=== PATIENT | female | born 1930 | race Caucasian/White ===

== ENCOUNTER 2018-09-18 13:08 | Inpatient (IN) | payer OTHER ==
[~2018-09-18] VITALS: Ht 146 cm; Wt 65.8 kg
[2018-09-18 13:24] VITALS: BP 103/54
[2018-09-18 14:15] LABS: ABSOLUTE NEUTROPHILS 4.9 thou/uL (1.4-8.2); BASOPHILS 0.8 % (0.0-2.0); EOSINOPHILS 1.4 % (0.0-3.0); HEMATOCRIT 39.5 % (37.0-47.0); HEMOGLOBIN 13.2 gm/dL (12.0-15.0); LYMPHOCYTES 28.2 % (24.0-44.0); MCH 32.3 pg (26.0-34.0); MCHC 33.5 g/dL (28.0-37.0); MCV 96.4 fL (80.0-100.0); MONOCYTES 8.8 % (1.0-8.0); PLATELET COUNT 219 thou/uL (150-400); POLYS 60.8 % (36.0-66.0); RBC 4.09 mil/uL (4.20-5.00); RDW 13.8 % (10.5-14.5); WBC 8.1 thou/uL (4.0-11.0)
[2018-09-18 14:23] LABS: ANION GAP 9 mmol/L (7-16); BUN 21 mg/dL (7-18); CALCIUM 8.9 mg/dL (8.5-10.1); CHLORIDE 110 mmol/L (98-107); CO2 25 mmol/L (21-32); CREATININE 0.8 mg/dL (0.6-1.0); GLUCOSE 112 mg/dL (74-106); SODIUM 144 mmol/L (136-145)
[2018-09-18 14:34] LABS: ALBUMIN 3.2 g/dL (3.4-5.0); MAGNESIUM 1.8 mg/dL (1.8-2.4); SALICYLATE < 2.8 mg/dL (2.8-20.0); SGOT 31 U/L (15-37); SGPT 21 U/L (30-65); TOTAL BILIRUBIN 0.6 mg/dL (<0.1-1.0); TOTAL PROTEIN 6.2 g/dL (6.4-8.2); TROPONIN-I <0.06 ng/mL (<0.06)
[2018-09-18 15:25] LABS: URINE BILIRUBIN NEGATIVE (Negative); URINE BLOOD TRACE (Negative); URINE CLARITY CLEAR; URINE COLOR YELLOW; URINE GLUCOSE-RANDOM* NEGATIVE (Negative); URINE KETONES NEGATIVE (Negative); URINE PROTEIN (DIPSTICK) NEGATIVE (Negative); URINE UROBILINOGEN 0.2 E.U./dl (0.2-1.0)
[2018-09-18 15:26] LABS: URINE LEUKOCYTES-REFLEX 3+ (Negative); URINE NITRITE-REFLEX POSITIVE (Negative)
[2018-09-18] MEDS ORDERED: ASPIR 8181 M1 PO (15:26)
[2018-09-18] MEDS ORDERED: MIRALAX17 GM PO (15:27)
[2018-09-18] MEDS ORDERED: B-12500 MC1 PO (15:27)
[2018-09-18] MEDS ORDERED: BIOFREEZE118 ML TOP (15:27)
[2018-09-18] MEDS ORDERED: LAMICTAL XR100 MG PO (15:29)
[2018-09-18] MEDS ORDERED: CLARITIN10 MG PO (15:29)
[2018-09-18] MEDS ORDERED: HYDROCORTISONE30 G9 TOP (15:29)
[2018-09-18] MEDS ORDERED: LISINOPRIL10 MG PO (15:29)
[2018-09-18] MEDS ORDERED: UNICOMPLEX M TA1 TA1 PO (15:30)
[2018-09-18] MEDS ORDERED: PROAIR HFA8.5 GM INH (15:31)
[2018-09-18] MEDS ORDERED: SYNTHROID100 MC1 PO (15:31)
[2018-09-18] MEDS ORDERED: VITAMIN D1000 UNI1 PO (15:32)
[2018-09-18] MEDS ORDERED: TYLENOL325 MG PO (15:32)
[2018-09-18 15:34] LABS: AMP/METHAMP Negative (Negative); BARBITURATES Negative (Negative); BENZODIAZEPINES Negative (Negative); COCAINE Negative (Negative); METHADONE Negative (Negative); OPIATES Negative (Negative); PCP Negative (Negative)
[2018-09-18 15:41] LABS: BACTERIA-REFLEX >30 Many /HPF (None Seen); CASTS None Seen /LPF (None Seen); CRYSTALS None Seen /LPF (None Seen); SQUAMOUS 0-3 Few /LPF (0-3); URINE RBC 0-2 Rare /HPF (0-2)
[2018-09-18 15:58] VITALS: BP 110/58
[2018-09-18 17:48] VITALS: BP 145/75
--- NOTE | 2018-09-18 17:55 | NUR ---
WHITE 87 YEAR OLD WHITE FEMALE ADMITTED FROM ER. PT. ARRIVED ON A STRETCHER AT 1630 TODAY. PT. ACCOMPANIED BY ONE HOSPITAL STAFF AND TWO SONS. QUESTIONS ANSWERED MOSTLY BY THE SONS. REPORT STATED THIS PATIENT WAS DELUSIONAL, ANXIETY, OUTBURSTS. SONS DENIED THIS HAS OCCURRED. PT. HAS A HISTORY OF DIVERTICULITIS WITH BOWEL RESECTION, RECURRENT UTI'S FALL IN 2014 WITH BRAIN BLEED AND NOW WITH INCREASED WEAKNESS ON LEFT HEMISPHERE OF BODY, AND PARTIAL HYSTERECTOMY, GALL BLADDER REMOVED ABOUT 30 YEARS AGO. SHE SITS IN A W/C AND NEEDS ASSISTANCE OF TWO STAFF TO GET HER UP INTO W/C OR INTO BED. SHE DENIES DRUG OR ETOH HISTORY. SKIN IS INTACT AND NO PROBLEMS NOTED.
[2018-09-18 19:25] LABS: TSH 0.641 uIU/mL (0.358-3.740)
[2018-09-18 21:08] VITALS: BP 107/63
--- NOTE | 2018-09-19 02:39 | NUR ---
Pleasant and cooperative upon inital assessment at approx 1930-observed initally in bed in room- reports having to use bathroom and provided with roller walker and bedside commode-requires max assist x2 for transfer to commode d/t left hemiperisis-had been incont large amount urine prior to transfer to commode-urine is noted to concentrated with strong odor-bedding changed and repositioned for comfort-appreciative of cares provided thanking staff profously-takes sips of water with encouragement-denies c/o pain and discomfort-full range affect using humor and telling jokes and stories to staff. was incontinent of urine short time later at approx 2230 and again assisted to commode-does report some all over pain rated a 6 on 1-10 scale-requested and received tylenol 625mg po prn for reported-does appear to be resting quietly with eyes close upon reassement in approx 30 minutes-will continue to monitor
[2018-09-19 07:35] VITALS: BP 98/57
--- NOTE | 2018-09-19 09:57 | NUR ---
0730: Report rec. from noc shift, care assumed. Awake, oriented to name and place. To DR via w/c, feeds self with set-up assist. Cooperative and calm with staff, asks questions regarding procedures and schedules of facility, explanation given, appetite good, takes medications w/o difficulty. [id number]: Son called unit to inquire about visiting pt, update given on pts status, son to be here for visit today.
--- NOTE | 2018-09-19 18:42 | EKG ---
[place] [address] [facility] [facility] [place] [address] ELECTROCARDIOGRAM REPORT Name: CALRINMELITA Room #: 52-B ADM IN M.R.#: [id number] ������������������ Admission: 09/18/18 ������������������ Attend Phys: Rocky Pathak DO Discharge: ������������������ Date of : [birth year] Report #: [id number] ����������������������������������������������������������������� [id number] THIS REPORT FOR: //name// [facility] ED Test Date: 2018-09-18 Test Time: 14:25:15 Pat Name: MELITA CARLIN Department: Room: 52 Gender: F Factory Supervisor: BRIE : 1930 Requested By: Fabian Cuenca Order Number: [id number] MD: Umer Salinas Measurements Intervals [place] Rate: 104 P: DE: QRS: -6 QRSD: 91 T: 2 QT: 375 QTc: 494 Interpretive Statements Atrial fibrillation Low voltage throughout Nonspecific ST-T wave changes No previous ECG available for comparison Electronically Signed On 09-19-2018 18:42:03 CDT by Umer Salinas [email or web address] ��������������������������������������������� <ELECTRONICALLY SIGNED> ���������������������������������������� By: Umer Salinas MD ��������������������������������������������� 09/19/18 1842 1425 1425 Umer Salinas MD /ANTWON
[2018-09-19 19:35] VITALS: BP 118/55
--- NOTE | 2018-09-19 20:42 | NUR ---
Stool sample collected, pt requested to [facility] bed at 0845. 2 person transfer, l sided weakness. Requested to use bedpan and had bowel movment but was incontinent of urine. Pt asked what the plan was for the evening upon introductions.
--- NOTE | 2018-09-20 02:27 | NUR ---
Pt refused labs attempt to draw syphillis at 0230. She stated she did not want to have any more procedures and she had blood drawn 2 days ago.
--- NOTE | 2018-09-20 04:06 | NUR ---
Pt slept throughout the night except when awakened for rounds or by lab.
--- NOTE | 2018-09-20 06:24 | NUR ---
Pt refused reattempt at blood draw this am. Will have day shift share with dr during rounding.
--- NOTE | 2018-09-20 11:07 | NUR ---
ASSUMED CARE OF PT AT 0700. PT ATE BREAKFAST IN DAYROOM AT TABLE W/PEERS. PT UP IN WHEELCHAIR W/ASSIST, NON-WT. BEARING L SIDE - L SIDE FLACCID D/T PAST HX OF STROKE. STAFF ATTEMPTED TO CHANGE PT SWEATER AFTER BREAKFAST SWEATER SOILED. PT YELLING "STOP IT DON'T HIT ME, DON'T BRUISE ME, DON'T LOCK ME IN A ROOM." STAFF ATTEMPTED TO REDIRECT/CALM PT. PT DID NOT PHYSICALLY ATTEMPT TO HARM STAFF, BUT CONTINUED YELLING AT STAFF x2 UNTIL HER SWEATER WAS CHANGED. PT WANTED TO HOLD DIRTY SWEATER TO GIVE TO HER FAMILY TO LAUNDER. PT ANTICIPATED FAMILY TO VISIT. PT CONFUSED AND DISORIENTED. TOOK AM MEDS W/O DIFFICULTY. NO ACUTE DISTRESS NOTED. WILL CONTINUE TO MONITOR THROUGHOUT SHIFT.
[2018-09-20 11:26] VITALS: BP 96/61
--- NOTE | 2018-09-20 15:26 | NUR ---
UP IN WHEELCHAIR IN DAYROOM, BEHAVIOR SUSPICIOUS/PARANOID. PT STATING SHE IS TALKING TO ANYONE WITHOUT HER EXTERIOR WORK HELPER OR FAMILY MEMBER PRESENT. PT STATING SHE IS NOT GOING TO HAVE LABS/EKG DONE. PT STATING SHE DOESN'T TRUST ANYONE WHO WORKS HERE. PT SON CALLED TO UPDATE ON HOW PT WAS DOING AND TO INFORM THAT HE AND PT'S WILL BE COMING FOR VISIT. PT WAS INFORMED FAMILY WAS PLANNING TO COME TO VISIT. "GOOD THEY TAKE ME OUT OF HERE." PT VOICING NO COMPLAINTS & IN NO ACUTE DISTRESS. CONTINUE TO MONITOR THROUGHOUT SHIFT.
--- NOTE | 2018-09-20 15:29 | NUR ---
LAB CALLED & SAID THEY WERE CANCELLING LAB ORDER PT IS REFUSING TO HAVE LAB DRAWN.
--- NOTE | 2018-09-20 16:55 | NUR ---
PT INCONTINENT YELLOW URINE -PERICARE COMPLETED W/ASSIST OF 2 -PT NON-WT BEARING. PT SITTING IN DAYROOM VISITING W/ AND SON. REMAINS DISORIENTED AND CONFUSED - PLEASANT AT THIS TIME.
--- NOTE | 2018-09-20 18:46 | NUR ---
PT LYING QUIETLY IN BED AT PRESENT PER HER REQUEST. INCONTINENT AND PERICARE COMPLETED. PT TEARFUL SAYING "CAN YOU JUST TELL ME WHY I AM HERE AND WHO IS GOING TO ." REASSURED PT SHE IS SAFE AND REORIENTED HER TO SURROUNDINGS. CONITNUE TO MONITOR.
--- NOTE | 2018-09-20 21:31 | NUR ---
Pt resting in bed upon arrival to shift. Pt requested prn tylenol x 1. Smiling calm compliant with meds.
--- NOTE | 2018-09-20 22:45 | NUR ---
Pt yelling our for assistance reported l groin tingling. Pt was repositioned and changed. Pt was turned on her L side and holding herself up and was screeching dont touch me you are hurting me, but no one was touching her.
[2018-09-21 08:00] VITALS: BP 86/43
[2018-09-21 09:00] VITALS: BP 86/43
--- NOTE | 2018-09-21 09:00 | NUR ---
PT IN GOOD MOOD TODAY. ABLE TO FEED SELF. UNABLE TO USE LEFT HAND DUE TO STROKE IN 2015. ABLE TO STAND ON RT LEG TO HELP WITH TRANSFERS. WEARS BRIEF FOR INCON. STATED SHE WANTED TO HAVE A GOOD BM TODAY AND WAS WONDERING IF LEFT SIDE OF COLON WAS PARALYZED. LAST BM ON THE .
--- NOTE | 2018-09-21 11:30 | NUR ---
GETTING ECHO. PT STATED TO RIBBON CUTTER SHE DIDN'T TRUST HER, STATED SHE HAS LEARNED NOT TO TRUST ANYONE EVEN HERSELF. SHE ALLOWED [employer] TO PERFORM TEST.
--- NOTE | 2018-09-21 12:37 | 2DMMODE ---
[facility] [address] [place] [address] 2 D/M-MODE ECHOCARDIOGRAM Name: CARLINMELITA Room #: 522B-B ADM IN .R.#: [id number] ������������� Admission: 09/18/18 ������������� Attend Phys: Rocky Pathak Discharge: ��� ������������� ��� Date of : [birth year] Date of Service: 09/21/18 1237 �� Report #: [id number] �������� ��������������������������������������������[id number] THIS REPORT FOR: //name// APPROVED REPORT Study performed: 09/21/2018 11:04:29 EXAM: Comprehensive 2D, Doppler, and color-flow Echocardiogram Patient Location: Bedside Room #: 522 Status: routine BSA: 1.69 HR: 85 bpm BP: 96/61 mmHg Rhythm: Atrial Fibrillation Other Information Study Quality: Adequate/Technically Difficult Technically limited study due to uncooperative patient/ dementia. Indications Atrial Fibrillation 2D Dimensions RVDd: 40.50 mm IVSd: 13.58 (7-11mm) LVOT Diam: 18.34 (18-24mm) LVDd: 41.62 mm PWd: 13.20 (7-11mm) Ascending Ao: 32.81 (22-36mm) LVDs: 22.12 (25-40mm) Aortic Root: 27.28 mm IVC: 14.00 mm Volumes Left Atrial Volume (Systole) Single Plane 4CH: 73.75 mL Single Plane 2CH: 95.60 mL LA ESV Index: 57.00 mL/m2 Aortic Valve LVOT Max P.64 mmHg LVOT Max V: 0.64 m/s TAN Vmax: 1.44 cm2 Mitral Valve MV Decel. Time: 134.93 ms MV E Max Willie.: 1.26 m/s [facility] [address] [place] [address] 2 D/M-MODE ECHOCARDIOGRAM Name: RAEGANORIANAMALENA [place] Room #: 52-B [facility] IN [facility]#: [id number] ������������� Admission: 09/18/18 ������������� Attend Phys: Rocky Pathak Discharge: ��� ������������� ��� Date of : [birth year] Date of Service: 09/21/18 1237 �� Report #: [id number] �������� ��������������������������������������������[id number] IVRT: 64.59 ms Pulmonary Valve PV Peak Willie.: 0.80 m/s PV Peak Gr.: 2.59 mmHg Tricuspid Valve TR Peak Willie.: 2.83 m/s RAP Estimate: 5.00 mmHg TR Peak Gr.: 31.96 mmHg PA Pressure: 37.00 mmHg Left Ventricle The left ventricle is normal size. Mild to moderate concentric left ventricular hypertrophy. The left ventricular systolic function is normal. The left ventricular ejection fraction is within the normal range. LVEF is 60-65%. This study is not technically sufficient to allow evaluation of the LV diastolic function due to atrial fibrillation. Right Ventricle Right ventricle is mildly dilated. The right ventricular systolic function is normal. Atria Left atrium is severely dilated. Right atrium is mildly dilated. Aortic Valve Aortic valve is mildly calcified. Mild aortic regurgitation. There is no aortic valvular stenosis. Mitral Valve Moderate mitral annular calcification. Severe mitral regurgitation with eccentric yet. No evidence of mitral valve stenosis. Tricuspid Valve The tricuspid valve is normal in structure. Severe tricuspid regurgitation. PAP is estimated at 37 mmHg. Pulmonic Valve Pulmonic valve is not well visualized. Trace pulmonic regurgitation. Great Vessels The aortic root is normal in size. IVC is normal in size and collapses >50% with inspiration. [facility] [place] [address] 2 D/M-MODE ECHOCARDIOGRAM Name: MELITA CARLIN Room #: 522B-B [facility] IN M.R.#: [id number] ������������� Admission: 09/18/18 ������������� Attend Phys: Rocky Pathak Discharge: ��� ������������� ��� Date of : [birth year] Date of Service: 09/21/18 1237 �� Report #: [id number] �������� ��������������������������������������������[id number] Pericardium There is no pericardial effusion. <Conclusion> The left ventricle is normal size. LVEF is 60-65%. Right ventricle is mildly dilated. Left atrium is severely dilated. Right atrium is mildly dilated. Aortic valve is mildly calcified. Mild aortic regurgitation. Moderate mitral annular calcification. Severe mitral regurgitation with eccentric yet. The tricuspid valve is normal in structure. Severe tricuspid regurgitation. PAP is estimated at 37 mmHg. Pulmonic valve is not well visualized. Trace pulmonic regurgitation. There is no pericardial effusion. ��������������������������������������������� <ELECTRONICALLY SIGNED> ���������������������������������������� By: Umer Salinas MD ��������������������������������������������� 09/21/18 1237 1237 1237 Umer Salinas MD /INF
[2018-09-21 13:00] VITALS: BP 95/47
[2018-09-21 14:05] VITALS: BP 86/43
--- NOTE | 2018-09-21 15:13 | NUR ---
PT HAS BEEN ATTENDING GROUPS TODAY. PT WAS TEARFUL EARLIER TODAY TALKING WITH ANOTHER PATIENT.
--- NOTE | 2018-09-21 18:00 | NUR ---
PLACED PT TO BED AFTER DINNER. FAMILY HER FOR DINNER AND HAD TO LEAVE DUE TO PT STATING FOR THEM TO LEAVE. PT PUT BACK TO BED AND CHANGED BRIEF. PT WANTED TO USE BED DANIEL TO HAVE BM, NO BM RESULTS JUST PASSING SOME GAS. PT DID VOID LARGE AMOUNT OF URINE. PT IS A 1-2 MAN TRANSFER. PT ABLE TO BEAR WEIGHT TO RT LEG AND PIVOT FROM BED TO CHAIR.
[2018-09-21 20:05] VITALS: BP 100/65
--- NOTE | 2018-09-22 02:31 | NUR ---
IN BED RESTING QUIETLY UPON INITAL ASSESSMENT THIS PM- RECOGNIZES THIS GAS STATION SERVICE ATTENDANT FROM PREVIOUOS SHIFT STATING "I REMEMBER TELLING YOU MY THREE BEARS JOKE"COOPERATIVE WITH STAFF-ASSSITED TO BEDSIDE COMMODE WITH ASSSIT X 2 AND DID HAVE LARGE SOFT BM-REPORTING LEFT SIDED LOW ABDOMINAL PAIN BUT STATES THAT GOT BETTER AFTER URINATING AND HAVING A BM-TYLENOL 650MG PO PRN FOR LEFT LOWER ABD PAIN AT APPROX 2145-ASLEEP WITHIN 30 MIN OF ADMINISTRATION.
[2018-09-22 09:51] VITALS: BP 104/61
--- NOTE | 2018-09-22 16:29 | EKG ---
[place] [address] [facility] [place] [address] ELECTROCARDIOGRAM REPORT Name: CARLINMELITA Room #: 522B-B ADM IN M.R.#: [id number] ������������������ Admission: 09/18/18 ������������������ Attend Phys: Rocky Pathak DO Discharge: ������������������ Date of : [birth year] Report #: [id number] ����������������������������������������������������������������� [id number] THIS REPORT FOR: //name// [facility] Test Date: 2018-09-22 Test Time: 13:47:05 Pat Name: MELITA CARLIN Department: Room: 522B B Gender: F Paralegal Legal Secretary: Leonides WHITTINGTON : 1930 Requested By: Yumiko Goodman Order Number: [id number] MD: Alfie Cardenas Measurements Intervals [place] Rate: 76 P: [place]: QRS: 5 QRSD: 92 T: 18 QT: 414 QTc: 466 Interpretive Statements Atrial fibrillation Low voltage, extremity leads Compared to ECG 09/18/2018 14:25:15 ST (T wave) deviation no longer present Electronically Signed On 09-22-2018 16:28:50 CDT by Alfie Cardenas [email or web address] ��������������������������������������������� <ELECTRONICALLY SIGNED> ���������������������������������������� By: Alfie Cardenas MD ��������������������������������������������� 09/22/18 7798 1347 1347 Alfie Cardenas MD /EPI
--- NOTE | 2018-09-22 17:39 | NUR ---
ATTENDED GROUPS AND ATE MEALS IN DINNIING ROOM WITH PLEASANT DEMENOR. GOOD APPETITE AND INSISTS ON FEEDING SELF. NO C/O PAIN. RESP EVEN AND UNLABORED ON ROOM AIR. CONTINUES TO BE SOMEWHAT PARANOID AND WORRRIED ABOUT PEOPLE TREATING HER BAD.
[2018-09-22 20:31] VITALS: BP 81/47
[2018-09-23 07:40] VITALS: BP 87/51
[2018-09-23 08:00] VITALS: BP 87/51
--- NOTE | 2018-09-23 08:00 | NUR ---
PT ASSISTED TO W/C X1 STAFF. PT ABLE TO HELP WITH PIVOTING. PT DRY WHEN GETTING UP TO W/C. PT STATED SHE DOES HAVE SOME PAIN TO LEFT LOWER QUADRANT WITH BED POSTITION CHANGES.
--- NOTE | 2018-09-23 10:30 | NUR ---
PT WAS GOING TO BE TAKEN INTO SHOWER ROOM. PT STATED SHE DIDN'T WANT TO BE LOCKED IN THERE. PT STARTED YELLING AND PUTTING FOOT DOWN NOT WANTING TO GET INTO ROOM. PT THEN TAKEN TO ROOM AND PLACED INTO BED FOR SPONGE BATH AND PUTTING ON CLEAN CLOTHES.
[2018-09-23 19:20] VITALS: BP 101/48
--- NOTE | 2018-09-23 20:43 | NUR ---
Pt declined hs snack, pt requested prn tylenol prior to sleep. Pt was in bed upon arrival to shift. Pt is sleeping with pillow over her head.
--- NOTE | 2018-09-24 00:01 | NUR ---
Pt remaining asleep after adl cares. No verbalizations regarding staff harming her during adl care.
--- NOTE | 2018-09-24 06:21 | NUR ---
Obtained UA through straight cath this am.
[2018-09-24 07:09] LABS: URINE BILIRUBIN NEGATIVE (Negative); URINE BLOOD NEGATIVE (Negative); URINE CLARITY CLEAR; URINE COLOR YELLOW; URINE GLUCOSE-RANDOM* NEGATIVE (Negative); URINE KETONES NEGATIVE (Negative); URINE LEUKOCYTES-REFLEX NEGATIVE (Negative); URINE NITRITE-REFLEX NEGATIVE (Negative); URINE PROTEIN (DIPSTICK) NEGATIVE (Negative); URINE SPECIFIC GRAVITY <= 1.005 (1.005-1.035); URINE UROBILINOGEN 0.2 E.U./dl (0.2-1.0)
--- NOTE | 2018-09-24 10:39 | NUR ---
ASSUMED PATIENT CARE AT 0700. PATIENT IN BED AT THAT TIME, ASSISTED UP FOR BREAKFAST PER HYBRID DERIVATIVES TRADER. CONFUSED MOOD, FLAT AFFECT, NO BEHAVIORS TO DATE THIS SHIFT. COMPLIANT WITH MEDICATIONS. CONTINUE TO MONITOR.
[2018-09-24 20:19] VITALS: BP 132/75
--- NOTE | 2018-09-25 01:25 | NUR ---
PT IN BED AT [facility] OF SHIFT. ABLE TO TAKE MEDS AND SWALLOW W/O PROBLEM. QUIET AND COOPERATIVE THIS PM. SLEPT INTERMITTANTLY THROUGH THE NIGHT TO THIS POINT.
[2018-09-25 07:15] VITALS: BP 83/48
[2018-09-25 07:30] VITALS: BP 83/48
[2018-09-25 09:00] VITALS: BP 83/48
--- NOTE | 2018-09-25 09:00 | NUR ---
PT ASSISTED TO W/C PER X2 STAFF. PT COOROPERATIVE WITH STAFF, NO YELLING OR FIGHTING. PT ABLE TO FEED SELF WITH RT HAND. LEFT HAND IS ON SPECIAL ARM HARRIS ON W/C. PT HAS DRY BRIEF ON AFTER INCON. CHANGE. PT STATED SHE DOES GET A STABBING, JOLT PAIN TO LLQ AT TIMES. REFUSES ANYTHING FOR PAIN NOW.
--- NOTE | 2018-09-25 14:16 | NUR ---
Recreational Therapy Weekly Progress Note Date of Admission: 09/18/18 Date of Activity Therapy Assessment: 09/21/18 Activity Goal: Patient will participate in 1 recreational therapy group per day until discharge. Initial Goal: Increase socialization and development of social skills to create trusting relationships within the milieu. Weekly progress towards goal: Achieving current goals Group participation level: Full Behaviors observed: Pt engaged in groups. Insightful to topics. No behaviors observed. Plan: No change towards goal
--- NOTE | 2018-09-25 15:00 | NUR ---
PT YELLING AND WANTING STAFF TO CALL POLICE DUE TO HER BEING ATTACKED. PT SITING IN GROUP. PT COMING OUT OF GROUP. PT YELLING HELP, WHEELING AROUND TO TRYING TO SHAKE DOOR OPEN.
--- NOTE | 2018-09-25 15:32 | NUR ---
PT PICKED UP WATER OFF TABLE AND TOSSED WATER TOWARDS RT SHOULDER AND GOT THIS NURSE WET THAT WAS PUSHING HER IN W/C.
--- NOTE | 2018-09-25 15:51 | NUR ---
PT NOT YELLING NOW, TALKING TO SELF IN W/C. CRYING. NURSE AND AID GOING TO CHANGE HER. SHE IS YELLING DON'T MOVE ME.
--- NOTE | 2018-09-25 17:00 | NUR ---
PT KICKING AT GARAGE DOOR, PT STATED SHE WANTED TO GET TO HER SON. STATED HER SON WAS NOT HERE, PT STOPPED KICKING AT DOOR WHEN PULLED AWAY.
--- NOTE | 2018-09-25 17:55 | NUR ---
ADM SERAQUEL 50MG PO FOR ANXIETY. PT HAD DINNER ARGUING WITH OTHER PATIENTS.
[2018-09-25 20:34] VITALS: BP 98/40
--- NOTE | 2018-09-26 03:20 | NUR ---
IN BED AND APPEARS TO BE SLEEPING UPON INITIAL ASSESSMENT THIS PM-ASSSITED TO BSC WITH ASSIST 2 STAFF AND DID VOID APPROX 100 CC DK YELLOW URINE IN COMMODE-COMPLIENT WITH HS MEDICATIONS AND DENIES PAIN/DISCOMFORT UPON PM ASSESSMENT-APPEARS DROWSY. INCONTINENT OF URINE X1 DURING NIGHT-PERINEAL CARE AND BEDDING CHANGE COMPLETED
--- NOTE | 2018-09-26 05:41 | NUR ---
METOPROLOL 12.5 MG PO HELD PER PARAMETERS FOR PULSE OF 59-BP 98/40. 02 SAT DOCUMENTED 77PERCENT AT 2029-RECHECK BY THIS RN AT 2099 95 PERCENT ON RA
[2018-09-26 07:45] VITALS: BP 105/64
--- NOTE | 2018-09-26 15:43 | NUR ---
ASSUMED CARE AT 0715 TODAY. PT. WAS PLEASANT THIS MORNING, EATING MEALS ON THE UNIT. THIS AFTERNOONE SHE STARTED YELLING AT STAFF, DON'T TOUCH ME. YOU'RE HURTING ME, KISS MY ASS, YOU BITCH. PT. YELLING IN THE ODONNELL WITH NO STAFF CLOSE TO HER. PRN OFFERED TO PATIENT BUT SHE REFUSED THE PRN. DR. JP PARKER. PT. LAYED DOWN IN BEDSHOT GIVEN THERE. PT. CONTINUING TO YELL AT STAFF.
[2018-09-26 22:18] VITALS: BP 118/66
--- NOTE | 2018-09-26 22:40 | NUR ---
ASSUMED CARE OF THE PT AT 191 PM. THE PT WAS DROWZY THIS PM. REFUSED TO TAKE HER MEDICATION THIS PM. EARLIER IN THE SHIFT WAS YELLING FOR WATER, WHICH WAS GIVEN TO HER. HEART RATE REGULAR. LUNGS CLEAR BILATERALLY, RESP., EVEN, AND UNLABORED. +BS HEARD IN ALL 4 QUADRANTS. MAKES NEED KNOWN. DENIES ANXIETY AND DEPRESSION EARLIER IN THE SHIFT. REMAINS ON 12 MINUTE CHECKS FOR HER SAFETY.
--- NOTE | 2018-09-27 01:40 | NUR ---
THE PT HAS BEEN SLEEPING MOST OF THE NOC SHIFT. THE PT REFUSED HER HS MEDICATIONS. REMAINS ON 12 MINUTE CHECKS FOR HER SAFETY.
--- NOTE | 2018-09-27 06:05 | NUR ---
THE PT SLEPT 10 HOURS LAST NIGHT.
[2018-09-27 07:25] VITALS: BP 113/67
--- NOTE | 2018-09-27 15:42 | NUR ---
ASSUMED PATIENT CARE AT 0700. ATE BREAKFAST AND LUNCH. FLAT AFFECT, DEPRESSED MOOD, VERBALLY AGITATED BEHAVIOR. ATE BREAKFAST AND LUNCH. RESTING IN BED PRIOR TO DINNER AT THIS TIME. CONTINUE TO MONITOR.
--- NOTE | 2018-09-27 19:13 | NUR ---
PATIENT'S BED SCALE WEIGHT 146.0 LBS THIS DATE
[2018-09-27 20:56] VITALS: BP 103/68
--- NOTE | 2018-09-28 04:55 | NUR ---
IN BED WITH EYES CLOSE UPON INITAL OBSERVATION THIS PM-IS REPORTING LEFT LOWER QUADRANT PAIN RATED "5 OR 6"-REQUESTING TYLENOL AND HS MEDS-DISORIENTED TO TIME SHE BELIEVES IT IS "MIDDLE OF NIGHT LIKE 1 0R 2 AM" AT 1999. STATING "IT WAS A LONG DAY I DIDN'T DO ANYTHING" INITALLY AFFECT CONSTRICTED AND IS NEGATIVE,MINIMALLY VERAL HOWEVER WHEN ASKED TO TELL HER "THREE BEARS" JOKE TO CLINICAL RN LIAISON WAS NOTED TO BECOME MORE ANIMATED AND OFFERING SPONTANEOUS RESPONSES. ASSISTED TO BEDSIDE COMMODE WITH 2 STAFF-BEDDING CHANGED AND REPOSITIONED FOR COMFORT-NO AGITATION,COMPLIENT WITH ALL CARES AND TAKING HS MEDS. NO PARANOIA NOTED OR REPORTED-DENIES A/V HALLUCINATIONS.
--- NOTE | 2018-09-28 09:21 | NUR ---
Assess for length of stay. Admit to senior behavioral health unit with dementia, paranoia. Wt hx is unknown however stable wts since admission on 09/18. Eating 50-100% meals. Low nutrition risk
--- NOTE | 2018-09-28 13:27 | NUR ---
ASSUMED CARE AT 0715 THIS MORNING. PT. IN BED AT THE TIME. SHE WAS CLEANED UP AND GOTTEN INTO HER W/C. SHE HAS BEEN OUT FOR MEALS, GROUPS. HAS BEEN PLEASANT AND COOPERATIVE TODAY. SHE IS ORIENTED TO SELF ONLY. COMPLIANT WITH MEDICATIONS AND STAFF. WANTED TO LAY DOWN AFTER LUNCH BUT WAS TOLD SHE COULD LAY DOWN AFTER GROUP TODAY AT 1300. DENIES SI/HI AND AVH AT THIS TIME.
[2018-09-28 15:14] LABS: ABSOLUTE NEUTROPHILS 5.1 thou/uL (1.4-8.2); BASOPHILS 0.3 % (0.0-2.0); EOSINOPHILS 3.7 % (0.0-3.0); HEMATOCRIT 38.1 % (37.0-47.0); HEMOGLOBIN 12.4 gm/dL (12.0-15.0); LYMPHOCYTES 26.9 % (24.0-44.0); MCH 31.7 pg (26.0-34.0); MCHC 32.5 g/dL (28.0-37.0); MCV 97.6 fL (80.0-100.0); MONOCYTES 9.2 % (1.0-8.0); PLATELET COUNT 181 thou/uL (150-400); POLYS 59.9 % (36.0-66.0); RDW 14.7 % (10.5-14.5); WBC 8.6 thou/uL (4.0-11.0)
[2018-09-28 18:35] VITALS: BP 87/52
[2018-09-28 19:42] VITALS: BP 102/57
--- NOTE | 2018-09-28 19:48 | NUR ---
ASSUMED CARE OF THE PT AT 191 PM. ALERT TO PERSON ONLY. THE PT WAS LYING IN BED WHEN THIS HISTOLOGY MANAGER CAME ON DUTY. HEART RATE REGULAR, LUNGS CLEAR BILATERALLY, RESP., EVEN, AND UNLABORED. +BS HEARD IN ALL 4 QUADRANTS. DENIES ANXIETY OR DEPRESSION, DENIES SI AND HI. DENIES A/V HALLUNCIATIONS. REMAINS ON 12 MINUTE CHECKS FOR HER SAFETY.
--- NOTE | 2018-09-29 06:32 | NUR ---
THE PT SLEPT 9 HOURS LAST NIGHT.
--- NOTE | 2018-09-29 08:45 | NUR ---
PT UP IN W/C THIS AM. PT IN GOOD MOOD. PT ABLE TO FEED SELF WITH RT HAND. LEFT HAND IN SPECIAL ARM HARRIS ON W/C. PT ABLE TO LIFT LEFT ARM WITH RT ARM. PT STATED SHE JUST WANTED TO FIGURE OUT WHY SHE IS HERE.
[2018-09-29 09:08] VITALS: BP 90/44
[2018-09-29] MEDS ORDERED: LOPRESSOR25 PO (12:47)
[2018-09-29] MEDS ORDERED: SEROQUEL 100 M100 M1 PO (12:48)
[2018-09-29] MEDS ORDERED: SEROQUEL 50 MG50 MG PO ×3 (12:48→12:49)
[2018-09-29] MEDS ORDERED: NAMENDA 5 MG TAB5 M1 PO (12:51)
--- NOTE | 2018-09-29 13:38 | NUR ---
Patient Name: MELITA CARLIN Admission Date: 09/18/18 DISCHARGE PLAN: Pt was discharged to [facility] memory care unit. Care Assessment: Pt was assessed by Dr. Pathak, and was diagnosed with Major Neurocognitive Disorder. Level II Assessment: None Transportation: Pt will be transport by [facility]. Special Instructions/Notes: Pt was reguluated on her medication, and stable to return home. DISCHARGE TO FACILITY: Memory Care unit Facility: [facility] Address: [address] [place] [address] Contact Name: Flower PCP: LISBET Psychiatrist: [facility] Psych[facility]
--- NOTE | 2018-09-29 13:53 | NUR ---
GAVE REPORT TO ITZ POLLARD AT [facility]. PT WAS PLAYING MONOPOLY WITH REC. THERAPY AND OTHER PATIENTS.
--- NOTE | 2018-09-29 15:40 | NUR ---
PT LEFT VIA PERSONAL W/C BACK TO [employer]. PT SON HERE TO PICK HER UP. PT VERY APPRICIATED FOR ALL THE HELP SHE GOT. PT VOIDED PRIOR TO LEAVING.
--- NOTE | 2018-10-01 21:45 | D ---
[facility] [place] [address] DISCHARGE SUMMARY Name: MELITA CARLIN Room #: 522B-B [facility] IN M.R.#: [id number] Admission: 09/18/18 ������������������ Attend Phys: Rocky Pathak DO Discharge: 09/29/18 ������������������ Date of : [birth year] Report #: [id number] THIS REPORT FOR: //name// CC: Rocky Pathak Lorraine Baker DATE OF SERVICE: 09/29/2018 INPATIENT PSYCHIATRIC DISCHARGE SUMMARY ATTENDING PHYSICIAN: Rocky Pathak DO SOFTWARE CLIENT ARCHITECT AT THE TIME OF DISCHARGE: Rocky Kenny MD PRIMARY PSYCHIATRIC DISCHARGE DIAGNOSIS: Major neurocognitive disorder, likely multifactorial, reportedly Alzheimer disease has been ruled out due to brain biopsy; however, the patient has had significant stroke with behavioral disturbance, improved. Medical comorbidities as follows: New onset atrial fibrillation, reviewed by cardiology. The patient is not a candidate for cardioversion, anticoagulation. Chronic abdominal pain, CBC normal, afebrile. Hemoccult stools negative. Urinary tract infection, last day of antibiotics was today. Seizure disorder. 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 Diabetes mellitus. DISCHARGE DIET: I believe she is on heart healthy, diabetic diet. MEDICATIONS: Metoprolol tartrate 12.5 mg p.o. b.i.d. for rate control, Seroquel 50 mg p.o. q. 6 p.r.n. for agitation, quetiapine 125 mg p.o. at 9:00 a.m. and 9:00 p.m. for mood stabilization, quetiapine 50 mg p.o. at 1400 daily, memantine 5 mg p.o. b.i.d. for cognitive enhancement for 7 days, she will need to increase to 5 mg p.o. in the morning, memantine 10 mg in the evening and 10 mg b.i.d., thereafter will be replaced in toto. She will continue aspirin 81 mg p.o. daily for cardioprotection, polyethylene glycol 17 g p.o. daily dissolved in water for bowel motility, lamotrigine XR 100 mg p.o. q. 12 for seizure prevention, loratadine 10 mg p.o. daily for antihistamine, multivitamin p.o. daily, levothyroxine 100 mcg oral daily for hypothyroidism, cholecalciferol 1000 international units p.o. daily. LABORATORY DATA: This admission, most recent hematology on 09/28/2018, white count 8.6, H and H 12.4 and 38.1, platelet count 181. Chemistries last done on 09/18/2018 was within normal limits except for chloride 110, BUN 21, glucose 112, ALT 21. NT-proBNP was 5657, which is chronically elevated. Total protein 6.2, albumin 3.2. Vitamin B12 of 996. TSH 0.641. During the admission, the patient did [place] [id number] DISCHARGE SUMMARY Name: RAEGANORIANAMALENA Angeles Room #: 522B-B [facility] IN M.R.#: [id number] Admission: 09/18/18 ������������������ Attend Phys: Rocky Pathak DO Discharge: 09/29/18 ������������������ Date of : [birth year] Report #: [id number] Lammoglia medically due to new onset atrial fibrillation with slight tachycardia. Findings were significant as follows: Left ventricle normal size with LVEF 60-65%. Right ventricle is mildly dilated, left atrium is severely dilated, right atrium is mildly dilated, aortic valve is mildly calcified, mild aortic regurgitation, moderate mitral annular calcification, severe mitral regurgitation with eccentric, yet tricuspid valve normal structure, pulmonary artery pressure 37. Pulmonary valve not well visualized. No pericardial effusion. REASON FOR ADMISSION: Psychosis, irritability at [facility]. HOSPITAL COURSE: The patient was admitted to the Geriatric Psychiatry Unit. She was on a low dose Seroquel to begin with, this was titrated to a dose of 300 mg p.o. daily. We did have some instances of her requiring intramuscular injections; however, in the last few days prior to discharge, these were essentially nonexistent. I had family meetings during the admission to discuss her atrial fibrillation, the management of that as well as the fact that she had apparently had intracranial hemorrhage with neurosurgical intervention. She had been having some cognitive difficulties at that time. There was a brain biopsy done, which concluded there were no amyloid plaques or neurofibrillary tenderness according to the family, I do not have records to corroborate. I discussed with the family that since this happened in 2013, there is a possibility of a mixed process given the risks, benefits and alternatives, elected to start her on memantine. The patient tolerated the hospitalization well and was not suicidal or homicidal on the day of discharge. PHYSICAL EXAMINATION: VITAL SIGNS: On the day of discharge are as follows: Temperature 36.6, pulse 89, respirations 13, BP 190/44, O2 sat 94%. MUSCULOSKELETAL: Nonambulatory. NEUROLOGIC: She has left-sided hemiparesis. MENTAL STATUS EXAMINATION: This is a well-developed, disheveled female appearing nearly stated age. Attention limited. Concentration limited. Speech is normal rate. Thought process linear, limited. Thought content, responds to questioning. Some psychomotor retardation with psychomotor agitation. No auditory, visual or tactile hallucinations. Denied suicidal intent or plan. Denied hopelessness, helplessness. Denied homicidal intent or plan. Memory noted to be impaired. Insight limited. Judgment limited. Fund of knowledge below average. Prognosis for this patient is guarded given her [facility] [address] [place] [address] DISCHARGE SUMMARY Name: MELITA CARLIN Bridgette Room #: 522B-B [facility] IN M.R.#: [id number] Admission: 09/18/18 ������������������ Attend Phys: Rocky Pathak DO Discharge: 09/29/18 ������������������ Date of : [birth year] Report #: [id number] dementia and given her disability. The patient should have primary care and psychiatric followup at the nursing facility. ��������������������������������������������� <ELECTRONICALLY SIGNED> ���������������������������������������� By: Rocky Pathak DO ��������������������������������������������� 10/01/18 [id number] 10 Rocky Pathak DO /nt
== END 2018-09-29 15:42 | DRG 884 ==
LOC: ER 13:08 → EROBS 14:48 → SBH 14:48
PROVIDERS: Emergency Medicine; Hospitalist; ADMIT Psychiatry & Neurology Psychiatry
DX: F01.51 Vascular dementia, unspecified severity, with behavioral disturbance (principal); N39.0 Urinary tract infection, site not specified; I69.154 Hemiplegia and hemiparesis following nontraumatic intracerebral hemorrhage affecting left non-dominant side; I48.1 Persistent atrial fibrillation; K57.92 Diverticulitis of intestine, part unspecified, without perforation or abscess without bleeding; F03.91 Unspecified dementia, unspecified severity, with behavioral disturbance; F31.9 Bipolar disorder, unspecified; F22 Delusional disorders; F41.9 Anxiety disorder, unspecified; G89.29 Other chronic pain; G40.909 Epilepsy, unspecified, not intractable, without status epilepticus; E05.90 Thyrotoxicosis, unspecified without thyrotoxic crisis or storm; K59.00 Constipation, unspecified; B96.20 Unspecified Escherichia coli [E. coli] as the cause of diseases classified elsewhere; E03.9 Hypothyroidism, unspecified; J44.9 Chronic obstructive pulmonary disease, unspecified; I34.0 Nonrheumatic mitral (valve) insufficiency; I27.20 Pulmonary hypertension, unspecified; I48.0 Paroxysmal atrial fibrillation; K57.90 Diverticulosis of intestine, part unspecified, without perforation or abscess without bleeding; E11.9 Type 2 diabetes mellitus without complications; Z79.82 Long term (current) use of aspirin; Z91.81 History of falling; Z79.899 Other long term (current) drug therapy; Z88.0 Allergy status to penicillin; Z88.2 Allergy status to sulfonamides
CPT/HCPCS: 10880